=== PATIENT | male | born 1990 | race Caucasian/White ===

== ENCOUNTER 2016-10-24 11:04 | Emergency (ER) | payer OTHER ==
[2016-10-24] MEDS ORDERED: Sodium Chloride 0.9% 1,000 ML IV ONE (11:08)
--- NOTE | 2016-10-24 11:15 | EDM.PDOC ---
ED HPI GENERAL MEDICAL PROBLEM - General Chief Complaint: Chest Pain Stated Complaint: HEART ISSUES Time Seen by Provider: 10/24/16 11:08 Source of Information: Reports: Patient History Limitations: Reports: No Limitations - History of Present Illness INITIAL COMMENTS - FREE TEXT/NARRATIVE: HISTORY AND PHYSICAL: History of present illness: Patient is a 26-year-old male who presents to the emergency room today with complaints of palpitations, lightheadedness, nausea, and tingling in his nose/ upper lip/bilateral hands. Patient reports he is from [place] and for the past several months has had episodes of lightheadedness, and he followed up with the primary care doctor in [place] last Sunday and was diagnosed with a irregular heart rhythm. He was told to follow-up with a certified scrum master. Patient reports that his made him an appointment in [place] with Dr. Nettles for November 02, 2016. Patient presents today because he was told if he developed any nausea or lightheadedness he needed to be seen in the emergency room. Patient states that the symptoms started again this morning and have not subsided. Patient denies any chest pain, dyspnea, headache, abdominal pain, fever or chills. Denies any extremity edema or cough. Review of systems: As per history of present illness and below otherwise all systems reviewed and negative. Past medical history: As per history of present illness and as reviewed below otherwise noncontributory. Surgical history: As per history of present illness and as reviewed below otherwise noncontributory. Social history: No reported history of drug or alcohol abuse. Family history: As per history of present illness and as reviewed below otherwise noncontributory. Physical exam: General: Nontoxic appearing 26-year-old male. Able to speak in full sentences without shortness of breath. Alert and oriented HEENT: Atraumatic, normocephalic, pupils reactive, negative for conjunctival pallor or scleral icterus, mucous membranes moist, throat clear, neck supple, nontender, trachea midline. Lungs: Clear to auscultation, breath sounds equal bilaterally, chest nontender. Heart: S1S2, regular rate and rhythm Abdomen: Soft, nondistended, nontender. Negative for masses or hepatosplenomegaly. Negative for costovertebral tenderness. Pelvis: Stable nontender. Genitourinary: Deferred. Rectal: Deferred. Extremities: Atraumatic. Neurovascular unremarkable. No peripheral edema noted. Neuro: Awake, alert, oriented. Cranial nerves II through XII unremarkable. Cerebellum unremarkable. Motor and sensory unremarkable throughout. Exam nonfocal. Discussed diagnostics with patient. Patient reports he feels "fine" at this time. Reviewed this case with and he felt that a Holter monitor would be appropriate and patient could be discharged. Instructed for the patient to keep his appointment that he has November 02. I reviewed with the patient what he should monitor for a while at home which included but not exclusive to: chest pain, shortness of breath, racing heart, fever chills. Patient voices understanding and is agreeable to plan of care. Respiratory therapy has came down to see the patient and will schedule for the patient to have a Holter monitor placed tomorrow, as one is not available today. These results will be forwarded to Dr. Burris. Diagnostics: CBC, CMP, CXR-1, EKG Therapeutics: IV fluids Impression: Palpitations Definitive disposition and diagnosis as appropriate pending reevaluation and review of above. - Related Data Allergies Allergy/AdvReac Type Severity Reaction Status Date / Time No Known Allergies Allergy Verified 10/24/16 11:07 Home Meds: Home Meds . [No Known Home Meds] 10/24/16 [History] ED ROS GENERAL - Review of Systems Review Of Systems: ROS reveals no pertinent complaints other than HPI. ED EXAM, GENERAL - Physical Exam Exam: See Below (See dictation) EKG INTERPRETATION EKG Date: 10/24/16 Rhythm: NSR Rate (Beats/Min): 76 Comparison: NA - No Prior EKG Course - Vital Signs Last Recorded V/S: Last Vital Signs Temp 36.7 C 10/24/16 11:08 Pulse 82 10/24/16 11:08 Resp 18 10/24/16 11:08 BP 134/84 10/24/16 11:08 Pulse Ox 100 10/24/16 11:08 - Orders/Labs/Meds Orders: Active Orders 24 hr Category Date Time Status Cardiac Monitoring [RC] . DIRECTED Care 10/24/16 11:08 Active EKG Documentation Completion [RC] STAT Care 10/24/16 11:08 Active Labs: Laboratory Tests 10/24/16 10/24/16 Range/Units 11:14 11:14 WBC 5.32 (4.0-11.0) K/uL RBC 5.11 (4.50-5.90) M/uL Hgb 16.1 (13.0-17.0) g/dL Hct 45.4 (38.0-50.0) % MCV 88.8 (80.0-98.0) fL MCH 31.5 (27.0-32.0) pg MCHC 35.5 (31.0-37.0) g/dL RDW Std Deviation 40.0 (28.0-62.0) fl RDW Coeff of Janelle 12 (11.0-15.0) % Plt Count 233 (150-400) K/uL MPV 9.20 (7.40-12.00) fL Neut % (Auto) 32.7 L (48.0-80.0) % Lymph % (Auto) 52.3 H (16.0-40.0) % [place] % (Auto) 10.3 (0.0-15.0) % Eos % (Auto) 3.9 (0.0-7.0) % Baso % (Auto) 0.8 (0.0-1.5) % Neut # (Auto) 1.7 (1.4-5.7) K/uL Lymph # (Auto) 2.8 H (0.6-2.4) K/uL [place] # (Auto) 0.6 (0.0-0.8) K/uL Eos # (Auto) 0.2 (0.0-0.7) K/uL Baso # (Auto) 0.0 (0.0-0.1) K/uL Nucleated RBC % 0.0 /100WBC Nucleated RBCs # 0 K/uL Sodium 138 (136-146) mmol/L Potassium 3.2 L (3.5-5.1) mmol/L Chloride 104 (98-110) mmol/L Carbon Dioxide 23 (21-31) mmol/L BUN 18 (6.0-23.0) mg/dL Creatinine 1.1 (0.6-1.5) mg/dL Est Cr Clr Drug Dosing TNP Estimated GFR (MDRD) > 60.0 ml/min Glucose 140 H (60-110) mg/dL Calcium 10.3 (8.8-10.8) mg/dL Total Bilirubin 0.7 (0.1-1.5) mg/dL AST 20 (5-40) IU/L ALT 17 (8-54) IU/L Alkaline Phosphatase 56 (40-150) Total Protein 7.9 (6.0-8.0) g/dL Albumin 4.8 (3.5-5.0) g/dL Globulin 3.1 (2.0-3.5) g/dL Albumin/Globulin Ratio 1.6 (1.3-2.8) Meds: Medications Discontinued Medications Generic Name Dose Route Start Last Admin Trade Name Freq PRN Reason Stop Dose Admin Sodium Chloride 1,000 mls @ 999 mls/hr 10/24/16 11:08 10/24/16 11:27 Normal Saline IV 10/24/16 12:08 999 mls/hr STAT ONE Administration Departure - Departure Time of Disposition: 12:12 Disposition: Home, Self-Care 01 Condition: Good Clinical Impression: Palpitations - Discharge Information Referrals: PCP,None [Primary Care Provider] - Forms: ED Department Discharge Additional Instructions: The following information is given to patients seen in the emergency department who are being discharged to home. This information is to outline your options for follow-up care. We provide all patients seen in our emergency department with a follow-up referral. The need for follow-up, as well as the timing and circumstances, are variable depending upon the specifics of your emergency department visit. If you don't have a primary care physician on staff, we will provide you with a referral. We always advise you to contact your personal physician following an emergency department visit to inform them of the circumstance of the visit and for follow-up with them and/or the need for any referrals to a consulting specialist. The emergency department will also refer you to a specialist when appropriate. This referral assures that you have the opportunity for followup care with a specialist. All of these measure are taken in an effort to provide you with optimal care, which includes your followup. Under all circumstances we always encourage you to contact your private physician who remains a resource for coordinating your care. When calling for followup care, please make the office aware that this follow-up is from your recent emergency room visit. If for any reason you are refused follow-up, please contact the [facility] emergency department at and ask to speak to the emergency department charge nurse. [facility] Primary care- Internal Medicine and Family [place] [id number] [place] [address] Please follow through with the Holter monitor. Dr. Burris receive these results. These keep your appointment with the certified scrum master for November 02, 2016 Follow-up in the ED as needed as discussed. - My Orders Last 24 Hours: My Active Orders 10/24/16 11:08 Cardiac Monitoring [RC] . DIRECTED EKG Documentation Completion [RC] STAT - Assessment/Plan Last 24 Hours: My Active Orders 10/24/16 11:08 Cardiac Monitoring [RC] . DIRECTED EKG Documentation Completion [RC] STAT
--- NOTE | 2016-10-24 12:02 | CR ---
EXAMINATION: Portable chest radiograph. HISTORY: Shortness of breath. FINDINGS: The trachea is midline. The cardiomediastinal silhouette is within normal limits. No pulmonary infilt rates, effusions or pneumothorax. Osseous structures appear unremarkable. IMPRESSION: No acute cardiopulmonary process.
[2016-10-24 12:04] LABS: CHLORIDE,CL 104 mmol/L (98-110); SODIUM,NA 138 mmol/L (136-146)
[2016-10-24 14:34] VITALS: BP 114/71
== END 2016-10-24 12:35 | disposition home or self-care (01) ==
LOC: MW.ED 11:04
DX: R00.2 Palpitations (principal)
CPT/HCPCS: 36415; 71010; 80053; 85025; 93005; 96360; 99284; J7040; 99282